=== PATIENT | female | born 1965 | race Caucasian/White ===

== ENCOUNTER → 2019-07-28 | Outpatient (CLI) | payer BC | LOC: FB.CLBR 14:58 | PROVIDERS: ATTEND Nurse Practitioner Family | DX: R52 Pain, unspecified (principal) | CPT/HCPCS: 87804; 87804-59 ==

== ENCOUNTER 2019-12-17 18:43 | Emergency (ER) | payer BC, OTHER ==
--- NOTE | 2019-12-17 18:54 | EDM.PDOC ---
ED HPI GENERAL MEDICAL PROBLEM - General Chief Complaint: Fever Stated Complaint: SHORTNESS OF BREATH Time Seen by Provider: 12/17/19 18:45 Source of Information: Reports: Patient History Limitations: Reports: No Limitations - History of Present Illness INITIAL COMMENTS - FREE TEXT/NARRATIVE: had URI symptoms since developed in to productive cough now has fever of 100.4 ad feels SOB today has history of smoking no recent travel no contact with person with COVID Works in [employer] section of [employer] Onset: Gradual Onset Date: 12/15/19 Duration: Day(s): (2), Getting Worse Location: Reports: Chest (gets sob with coughing , as she is able to cough up mucous this resolves) Quality: Reports: Burning Improves with: Reports: Heat Therapy Worsens with: Reports: Other (coughing) Context: Reports: Sick Contact (unaware of contact but works in [employer]) Associated Symptoms: Reports: Cough, Fever/Chills, Loss of Appetite, Malaise Chest Pain Score (Numeric/FACES): 4 - Related Data Allergies Allergy/AdvReac Type Severity Reaction Status Date / Time No Known Allergies Allergy Verified 12/17/19 19:00 Home Meds: Home Meds Albuterol Sulfate [Albuterol Sulfate Hfa] 18 gm IH Q6HR PRN #1 hfa.aer.ad [Rx] Azithromycin [Zithromax] 250 mg PO DAILY #4 tablet 12/17/19 [Rx] guaiFENesin [Mucinex] 600 mg PO BID #30 tab.er.12h 12/17/19 [Rx] ED ROS ENT - Review of Systems Review Of Systems: Comprehensive ROS is negative, except as noted in HPI. Constitutional: Reports: Fever, Chills HEENT: Reports: Rhinitis, Throat Pain Respiratory: Reports: Shortness of Breath, Cough, Sputum Cardiovascular: Reports: Dyspnea on Exertion Endocrine: Reports: Fatigue GI/Abdominal: Reports: Anorexia Musculoskeletal: Reports: No Symptoms Skin: Reports: No Symptoms Neurological: Reports: No Symptoms Psychiatric: Reports: Agitation ED EXAM, ENT - Physical Exam Exam: See Below Exam Limited By: No Limitations General Appearance: Alert, WD/WN, No Apparent Distress Eye Exam: Bilateral Eye: EOMI Ears: Normal External Exam Nose: Normal Inspection Mouth/Throat: Normal Inspection Neck: Normal Inspection, Supple, Non-Tender Respiratory/Chest: Lungs Clear, No Accessory Muscle Use Cardiovascular: Regular Rate, Rhythm GI/Abdominal: Soft, Non-Tender Back: Normal Inspection Extremities: Normal Range of Motion Neurological: Alert, Oriented, CN II-XII Intact Psychiatric: Normal Affect, Normal Mood Skin: Warm Lymphatic: No Adenopathy Course - Vital Signs Last Recorded V/S: Last Vital Signs Temp 36.3 C 12/17/19 19:45 Pulse 70 12/17/19 19:45 Resp 20 12/17/19 19:45 BP 144/88 H 12/17/19 19:45 Pulse Ox 100 12/17/19 19:45 - Orders/Labs/Meds Orders: Active Orders 24 hr Category Date Time Status CULTURE STREP A CONFIRMATION [RM] Stat Lab 12/17/19 18:55 Results MISCELLANEOUS REFERENCE TEST Stat Lab 12/17/19 18:55 Received STREP SCRN A RAPID W CULT CONF [RM] Stat Lab 12/17/19 18:55 Results Isolation [COMM] Routine Oth 12/17/19 18:52 Ordered Departure - Departure Time of Disposition: 20:25 Disposition: Home, Self-Care 01 Clinical Impression: Bronchitis, Cough - Discharge Information Referrals: PCP,None [Primary Care Provider] - Forms: ED Department Discharge Additional Instructions: 1) Increase fluid intake 2) Take tylenol for pain and fever 3) Expect call with test results 4) If symptoms get worse , return to ER Sepsis Event Note - Focused Exam Vital Signs: Vital Signs Temp Pulse Resp BP Pulse Ox 12/17/19 19:45 36.3 C 70 20 144/88 H 100 12/17/19 18:55 36.3 C 68 20 142/75 H 100 Date Exam was Performed: 12/17/19 Time Exam was Performed: 20:06 - My Orders Last 24 Hours: My Active Orders 12/17/19 18:52 Isolation [COMM] Routine 12/17/19 18:55 CULTURE STREP A CONFIRMATION [RM] Stat MISCELLANEOUS REFERENCE TEST Stat STREP SCRN A RAPID W CULT CONF [RM] Stat - Assessment/Plan Last 24 Hours: My Active Orders 12/17/19 18:52 Isolation [COMM] Routine 12/17/19 18:55 CULTURE STREP A CONFIRMATION [RM] Stat MISCELLANEOUS REFERENCE TEST Stat STREP SCRN A RAPID W CULT CONF [RM] Stat
[2019-12-17] MEDS ORDERED: Azithromycin 500 MG Tab PO ONE (20:19)
== END 2019-12-17 21:00 | disposition home or self-care (01) ==
LOC: FB.ED 18:43
DX: J40 Bronchitis, not specified as acute or chronic (principal)
CPT/HCPCS: 36415; 87081; 87804; 87804-59; 87880-QW; 99284; A9270-GY

== ENCOUNTER 2021-01-05 11:54 | Emergency (ER) | payer BC ==
[2021-01-05] MEDS ORDERED: Sodium Chloride 0.9% 10 ML Syringe FLUSH PRN (12:20)
[2021-01-05] MEDS ORDERED: Ondansetron 4 MG/2 ML SDV IVPUSH ONE (12:22)
[2021-01-05] MEDS ORDERED: Ketorolac 30 MG/ML SDV IVPUSH ONE (12:22)
[2021-01-05] MEDS ORDERED: Sodium Chloride 0.9% 1,000 ML IV SCH (12:30)
--- NOTE | 2021-01-05 12:32 | EDM.PDOC ---
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, pt called [facility] (PCP Marya) who told her to come here lives with and [id number], with N/V/D yesterday, better today altho he did not go to work had COVID in Jun, pt quarantined and tested neg for COVID on 07-06-21 PSH: c/s x 4, appy, no other abd surgery headache Pain Score (Numeric/FACES): 6 - Related Data Allergies Allergy/AdvReac Type Severity Reaction Status Date / Time No Known Allergies Allergy Verified 01/05/21 12:14 Home Meds: Home Meds Furosemide [Lasix] 20 mg PO DAILY 01/05/21 [History] Levothyroxine 200 mcg PO DAILY 01/05/21 [History] Losartan [Cozaar] 100 mg PO DAILY 01/05/21 [History] Metoprolol Succinate [Toprol XL] 25 mg PO BID 01/05/21 [History] Ondansetron [Ondansetron ODT] 4 mg PO Q6H PRN #6 tab.rapdis 01/05/21 [Rx] Sulfamethoxazole/Trimethoprim [Sulfamethoxazole-Tmp Ds Tablet] 1 each PO BID #6 tablet 01/05/21 [Rx] Past Medical History Psychiatric History: Reports: Anxiety, Depression Endocrine/Metabolic History: Reports: Obesity/BMI 30+ Oncologic (Cancer) History: Reports: Thyroid - Past Surgical History Other Oncologic Surgeries/Procedures: Thyroidecetomy Social & Family History - Caffeine Use Caffeine Use: Reports: Coffee, Soda, Tea ED ROS GENERAL - Review of Systems Review Of Systems: See Below Constitutional: Reports: No Symptoms HEENT: Reports: No Symptoms Respiratory: Reports: No Symptoms Cardiovascular: Reports: No Symptoms Endocrine: Reports: No Symptoms GI/Abdominal: Reports: Diarrhea, Nausea, Vomiting : Reports: No Symptoms Musculoskeletal: Reports: No Symptoms Skin: Reports: No Symptoms Neurological: Reports: No Symptoms Psychiatric: Reports: No Symptoms Hematologic/Lymphatic: Reports: No Symptoms Immunologic: Reports: No Symptoms ED EXAM, GI/ABD - Physical Exam Exam: See Below Exam Limited By: No Limitations General Appearance: Alert, WD/WN, No Apparent Distress, Other (alert, pleasant, walks without difficulty) Ears: Hearing Grossly Normal Head: Atraumatic, Normocephalic Neck: Normal Inspection, Supple, Non-Tender, Full Range of Motion. No: Lymphadenopathy (R), Lymphadenopathy (L) Respiratory/Chest: No Respiratory Distress, Lungs Clear, Normal Breath Sounds, Chest Non-Tender Cardiovascular: Regular Rate, Rhythm, No Edema, No Gallop, No Murmur GI/Abdominal Exam: Normal Bowel Sounds, Soft, Non-Tender, No Organomegaly, No Distention, Other (no localized tender, no CVAT b/l) Back Exam: Normal Inspection, Full Range of Motion Extremities: Normal Inspection, Non-Tender, No Pedal Edema Neurological: Alert, Oriented, CN II-XII Intact, Normal Cognition, Normal Gait, No Motor/Sensory Deficits Psychiatric: Normal Affect, Normal Mood Skin Exam: Warm, Dry, Intact, Normal Color, No Rash Lymphatic: No Adenopathy Course - Vital Signs Last Recorded V/S: Last Vital Signs Temp 36.6 C 01/05/21 11:55 Pulse 66 01/05/21 11:55 Resp 18 01/05/21 11:55 BP 153/83 H 01/05/21 11:55 Pulse Ox 100 01/05/21 11:55 - Orders/Labs/Meds Orders: Active Orders 24 hr Category Date Time Status CULTURE URINE [RM] Stat Lab 01/05/21 13:59 Ordered Sodium Chloride 0.9% [Normal Saline] 1,000 ml Med 01/05/21 12:30 Active IV ASDIRECTED Sodium Chloride 0.9% [Saline Flush] Med 01/05/21 12:20 Active 10 ml FLUSH ASDIRECTED PRN Peripheral IV Insertion Adult [OM.PC] Routine Oth 01/05/21 12:20 Ordered Medication Orders Sodium Chloride (Normal Saline) 1,000 mls @ 999 mls/hr IV ASDIRECTED MALIK Last Admin: 01/05/21 12:45 Dose: 999 mls/hr Documented by: ERIKA Sodium Chloride (Sodium Chloride 0.9% 10 Ml Syringe) 10 ml FLUSH ASDIRECTED PRN PRN Reason: Keep Vein Open Last Admin: 01/05/21 12:45 Dose: 10 ml Documented by: ERIKA Labs: Laboratory Tests 01/05/21 01/05/21 01/05/21 Range/Units 12:33 12:33 12:33 WBC 5.5 (3.0-10.3) x10-3/uL RBC 4.03 (3.60-5.20) x10(6)uL Hgb 12.4 (11.4-15.5) g/dL Hct 37.5 (34.2-48.2) % MCV 92.9 (76.7-100.5) fL MCH 30.7 (23.9-33.9) pg MCHC 33.1 (31.9-34.8) g/dL RDW 13.4 (12.3-16.5) % Plt Count 217 (151-488) x10(3)uL MPV 7.0 L (7.1-12.4) fL Neut % (Auto) 52.8 (30.8-76.2) % Lymph % (Auto) 34.5 (18.4-52.1) % Ray % (Auto) 9.1 (4.4-15.7) % Eos % (Auto) 2.9 (0.6-8.1) % Baso % (Auto) 0.7 (0.2-1.5) % Neut # (Auto) 2.9 (1.5-6.3) x10-3/uL Lymph # (Auto) 1.9 (1.0-4.4) x10-3/uL Ray # (Auto) 0.5 (0.3-1.0) x10-3/uL Eos # (Auto) 0.2 (0.0-0.8) x10-3/uL Baso # (Auto) 0.0 (0.0-0.1) x10-3/uL Sodium 141 (135-145) mmol/L Potassium 3.9 (3.5-5.3) mmol/L Chloride 104 (100-110) mmol/L Carbon Dioxide 29 (21-32) mmol/L BUN 11 (7-18) mg/dL Creatinine 0.8 (0.55-1.02) mg/dL Est Cr Clr Drug Dosing 84.01 mL/min Estimated GFR (MDRD) > 60 (>60) BUN/Creatinine Ratio 13.8 (9-20) Glucose 91 (80-116) mg/dL Calcium 8.5 L (8.6-10.2) mg/dL Total Bilirubin 0.5 (0.1-1.3) mg/dL AST 59 H (5-25) IU/L ALT 32 (12-36) U/L Alkaline Phosphatase 64 (56-112) IU/L C-Reactive Protein 1.1 H (0.5-0.9) mg/dL Total Protein 7.6 (6.0-8.0) g/dL Albumin 3.4 L (3.5-5.2) g/dL Globulin 4.2 g/dL Albumin/Globulin Ratio 0.8 Lipase 46 L (73-393) U/L Urine Color (YELLOW) Urine Appearance (CLEAR) Urine pH (5.0-6.5) Ur Specific [place] (1.010-1.025) Urine Protein (NEGATIVE) mg/dL Urine Glucose (UA) (NORMAL) mg/dL Urine Ketones (NEGATIVE) mg/dL Urine Occult Blood (NEGATIVE) Urine Nitrite (NEGATIVE) Urine Bilirubin (NEGATIVE) Urine Urobilinogen (NEGATIVE) mg/dL Ur Leukocyte Esterase (NEGATIVE) Urine RBC (0-5) Urine WBC (0-5) Ur Squamous Epith Cells (NS,R,O) Urine Bacteria (NS) 01/05/21 Range/Units 13:35 WBC (3.0-10.3) x10-3/uL RBC (3.60-5.20) x10(6)uL Hgb (11.4-15.5) g/dL Hct (34.2-48.2) % MCV (76.7-100.5) fL MCH (23.9-33.9) pg MCHC (31.9-34.8) g/dL RDW (12.3-16.5) % Plt Count (151-488) x10(3)uL MPV (7.1-12.4) fL Neut % (Auto) (30.8-76.2) % Lymph % (Auto) (18.4-52.1) % Ray % (Auto) (4.4-15.7) % Eos % (Auto) (0.6-8.1) % Baso % (Auto) (0.2-1.5) % Neut # (Auto) (1.5-6.3) x10-3/uL Lymph # (Auto) (1.0-4.4) x10-3/uL Ray # (Auto) (0.3-1.0) x10-3/uL Eos # (Auto) (0.0-0.8) x10-3/uL Baso # (Auto) (0.0-0.1) x10-3/uL Sodium (135-145) mmol/L Potassium (3.5-5.3) mmol/L Chloride (100-110) mmol/L Carbon Dioxide (21-32) mmol/L BUN (7-18) mg/dL Creatinine (0.55-1.02) mg/dL Est Cr Clr Drug Dosing mL/min Estimated GFR (MDRD) (>60) BUN/Creatinine Ratio (9-20) Glucose (80-116) mg/dL Calcium (8.6-10.2) mg/dL Total Bilirubin (0.1-1.3) mg/dL AST (5-25) IU/L ALT (12-36) U/L Alkaline Phosphatase (56-112) IU/L C-Reactive Protein (0.5-0.9) mg/dL Total Protein (6.0-8.0) g/dL Albumin (3.5-5.2) g/dL Globulin g/dL Albumin/Globulin Ratio Lipase (73-393) U/L Urine Color Yellow (YELLOW) Urine Appearance Slightly cloudy (CLEAR) Urine pH 5.0 (5.0-6.5) Ur Specific [place] 1.020 (1.010-1.025) Urine Protein Negative (NEGATIVE) mg/dL Urine Glucose (UA) Normal (NORMAL) mg/dL Urine Ketones Negative (NEGATIVE) mg/dL Urine Occult Blood Moderate H (NEGATIVE) Urine Nitrite Positive H (NEGATIVE) Urine Bilirubin Negative (NEGATIVE) Urine Urobilinogen Normal (NEGATIVE) mg/dL Ur Leukocyte Esterase Small H (NEGATIVE) Urine RBC 5-10 H (0-5) Urine WBC 5-10 H (0-5) Ur Squamous Epith Cells Moderate H (NS,R,O) Urine Bacteria Many H (NS) Meds: Medications Generic Name Dose Route Start Last Admin Trade Name Bj PRN Reason Stop Dose Admin Sodium Chloride 1,000 mls @ 999 mls/hr 01/05/21 12:30 01/05/21 12:45 Normal Saline IV 999 mls/hr ASDIRECTED MALIK Administration Sodium Chloride 10 ml 01/05/21 12:20 01/05/21 12:45 Sodium Chloride 0.9% 10 Ml Syringe FLUSH 10 ml ASDIRECTED PRN Administration Keep Vein Open Discontinued Medications Generic Name Dose Route Start Last Admin Trade Name Bj PRN Reason Stop Dose Admin Ketorolac Tromethamine 30 mg 01/05/21 12:22 01/05/21 12:29 Ketorolac 30 Mg/Ml Sdv IVPUSH 01/05/21 12:23 30 mg ONETIME ONE Administration Ondansetron HCl 4 mg 01/05/21 12:22 01/05/21 12:29 Ondansetron 4 Mg/2 Ml Sdv IVPUSH 01/05/21 12:23 4 mg ONETIME ONE Administration - Re-Assessments/Exams Free Text/Narrative Re-Assessment/Exam: 01/05/21 14:09 labs unremarkable except for UTI glucose wnl, SG 1.020 with no ketones given 1 liter NS feeling much better, N gone, pain almost gone, feels like she can go home hx and PE and labs and h/o same sxs all c/w viral gastroenteritis no clinical indication for imaging Departure - Departure Time of Disposition: 14:04 Disposition: Home, Self-Care 01 Condition: Good Clinical Impression: Viral gastroenteritis, UTI, Urinary tract infectious disease - Discharge Information *PRESCRIPTION DRUG MONITORING PROGRAM REVIEWED*: Not Applicable *COPY OF PRESCRIPTION DRUG MONITORING REPORT IN PATIENT LADONNA: Not Applicable Prescriptions: Ondansetron [Ondansetron ODT] 4 mg PO Q6H PRN #6 tab.rapdis PRN Reason: Nausea Sulfamethoxazole/Trimethoprim [Sulfamethoxazole-Tmp Ds Tablet] 1 each PO BID #6 tablet Instructions: Viral Gastroenteritis, Adult, Urinary Tract Infection, Adult, Food Choices to Help Relieve Diarrhea, Adult Forms: ED Return to Work/School Form Additional Instructions: Continue regular medications. For nausea, take ondansetron ODT 4 mg 1 tab under the tongue every 6 hours as needed. For bladder infection, take sulfamethoxazole-trimethoprim DS 1 tab 2 times a day for 3 days. For pain, take ibuprofen 200 mg 4 tabs 3 times a day as needed. Rest today. Increase fluids without caffeine. Avoid heavy and fatty foods. Use good handwashing. May work tomorrow if feeling at least 90% better. See your doctor if you are not much better tomorrow and back to normal in 2 days. Return to Emergency Department if you are feeling worse. Sepsis Event Note (ED) - Focused Exam Vital Signs: Vital Signs Temp Pulse Resp BP Pulse Ox 01/05/21 11:55 36.6 C 66 18 153/83 H 100 - My Orders Last 24 Hours: My Active Orders 01/05/21 12:20 Sodium Chloride 0.9% [Saline Flush] 10 ml FLUSH ASDIRECTED PRN Peripheral IV Insertion Adult [OM.PC] Routine 01/05/21 12:30 Sodium Chloride 0.9% [Normal Saline] 1,000 ml IV ASDIRECTED 01/05/21 13:59 CULTURE URINE [RM] Stat - Assessment/Plan Last 24 Hours: My Active Orders 01/05/21 12:20 Sodium Chloride 0.9% [Saline Flush] 10 ml FLUSH ASDIRECTED PRN Peripheral IV Insertion Adult [OM.PC] Routine 01/05/21 12:30 Sodium Chloride 0.9% [Normal Saline] 1,000 ml IV ASDIRECTED 01/05/21 13:59 CULTURE URINE [RM] Stat
== END 2021-01-05 14:25 | disposition home or self-care (01) ==
LOC: FB.ED 11:54
DX: A08.4 Viral intestinal infection, unspecified (principal); N39.0 Urinary tract infection, site not specified; E66.9 Obesity, unspecified; E07.9 Disorder of thyroid, unspecified; Z79.899 Other long term (current) drug therapy; Z68.43 Body mass index [BMI] 50.0-59.9, adult
CPT/HCPCS: 36415; 80053; 81001; 83690; 85025; 86140; 87086; 87088; 87186; 96374; 96375; 99284-25; J1885; J2405; J7030

== ENCOUNTER 2022-07-24 18:29 | Emergency (ER) | payer BC ==
[2022-07-24] MEDS ORDERED: predniSONE 10 MG Tab PO ONE (18:30)
[2022-07-24] MEDS ORDERED: hydrOXYzine HCl 50 MG/ML SDV IM ONE (19:07)
[2022-07-24] MEDS ORDERED: predniSONE 20 MG Tab PO ONE (19:07)
== END 2022-07-24 19:22 | disposition home or self-care (01) ==
LOC: FB.ED 18:29
DX: L29.9 Pruritus, unspecified (principal); I10 Essential (primary) hypertension; E03.9 Hypothyroidism, unspecified; E66.9 Obesity, unspecified; Z68.43 Body mass index [BMI] 50.0-59.9, adult; Z79.899 Other long term (current) drug therapy
CPT/HCPCS: 96372; 99282; J3410; J7512

== ENCOUNTER 2023-08-23 11:57 | Emergency (ER) | payer BC | END 2023-08-23 13:23 | disposition home or self-care (01) | LOC: FB.ED 11:57 | DX: S46.912A Strain of unspecified muscle, fascia and tendon at shoulder and upper arm level, left arm, initial encounter (principal); S16.1XXA Strain of muscle, fascia and tendon at neck level, initial encounter; S80.812A Abrasion, left lower leg, initial encounter; I10 Essential (primary) hypertension; E03.9 Hypothyroidism, unspecified; E66.9 Obesity, unspecified; Z87.891 Personal history of nicotine dependence; Z79.899 Other long term (current) drug therapy; Z68.43 Body mass index [BMI] 50.0-59.9, adult; W10.9XXA Fall (on) (from) unspecified stairs and steps, initial encounter | CPT/HCPCS: 99283 ==

== ENCOUNTER 2025-04-11 09:42 | Emergency (ER) | payer OTHER ==
[2025-04-11] MEDS ORDERED: Sodium Chloride 0.9% 10 ML Syringe FLUSH PRN (09:52)
[2025-04-11] MEDS: Ondansetron 4 MG/2 ML SDV IVPUSH ONE (10:05)
[2025-04-11 10:09] LABS: EOSINOPHILS ABSOLUTE AUTO 0.0 x10-3/uL (0.0-0.8); LYMPHOCYTES ABSOLUTE AUTO 1.3 x10-3/uL (1.0-4.4); MONOCYTES ABSOLUTE AUTO 0.9 x10-3/uL (0.3-1.0); RED BLOOD CELL COUNT 4.25 x10(6)uL (3.60-5.20)
[2025-04-11 10:10] LABS: BASOPHILS ABSOLUTE AUTO 0.0 x10-3/uL (0.0-0.1); BASOPHILS PERCENT AUTO 0.3 % (0.2-1.5); EOSINOPHILS PERCENT AUTO 0.1 % (0.6-8.1); LYMPHOCYTES PERCENT AUTO 8.7 % (18.4-52.1); MEAN PLATELET VOLUME 7.5 fL (7.1-12.4); MONOCYTES PERCENT AUTO 6.0 % (4.4-15.7); NEUTROPHILS ABSOLUTE AUTO 12.8 x10-3/uL (1.5-6.3); NEUTROPHILS PERCENT AUTO 84.9 % (30.8-76.2); PLATELET COUNT,PLT 189 x10(3)uL (151-488); RED CELL DISTRIBUTION WIDTH 13.7 % (12.3-16.5); WHITE BLOOD CELL COUNT,WBC 15.1 x10-3/uL (3.0-10.3)
[2025-04-11 10:14] LABS: BLOOD UREA NITROGEN,BUN 14 mg/dL (7-18); CARBON DIOXIDE,CO2 28 mmol/L (21-32); CHLORIDE,CL 101 mmol/L (100-110); CREATININE 1.1 mg/dL (0.55-1.02); EST CRCL DRUG DOSING (CG) 59.55 mL/min; ESTIMATED GFR 58 mL/min (>60); GLUCOSE RANDOM 109 mg/dL (80-116); POTASSIUM,K 3.3 mmol/L (3.5-5.3); SODIUM,NA 136 mmol/L (135-145)
[2025-04-11] MEDS: Potassium Chloride 20 MEQ Tab.ER PO ONE (10:31)
== END 2025-04-11 11:16 | disposition home or self-care (01) ==
LOC: FB.ED 09:42
DX: E86.0 Dehydration (principal); A08.4 Viral intestinal infection, unspecified; N39.0 Urinary tract infection, site not specified; I10 Essential (primary) hypertension; E03.9 Hypothyroidism, unspecified; Z79.890 Hormone replacement therapy; Z79.899 Other long term (current) drug therapy
CPT/HCPCS: 36415; 80048; 85025; 96361; 96374; 99283; 99284-25; A9270-GY; J2405; J7030